=== PATIENT | female | born 1970 | race Caucasian/White ===

== ENCOUNTER 2021-03-31 08:16 | Day surgery (SDC) | payer OTHER ==
[~2021-03-31] VITALS: Ht 162.6 cm; Wt 61.4 kg
[2021-03-31] MEDS ORDERED: VENTOLIN HFA18 GM INH (08:39)
[2021-03-31] MEDS ORDERED: AMBIEN5 MG PO (08:40)
--- NOTE | 2021-03-31 09:55 | NUR ---
03/31/21 0955 Iman Crawford 0951- PT TO PACU IN LL POSITION. EYES OPEN. RESPONDS TO QUESTIONS APPROPRIATELY. DROWSY. BREATHING EASY AND UNLABORED. SPO2 >95% ON 2 L O2 VIA NC. PT DENIES PAIN OR NAUSEA. FALLS BACK TO SLEEP EASILY.
--- NOTE | 2021-03-31 11:31 | NUR ---
1130 PAIN PILLS GIVEN PT EATING JELLO AND POPCICLES, TOLERATES WELL, HER IS WITH HER AT THE BEDSIDE.
--- NOTE | 2021-03-31 16:33 | OR ---
[facility] [address], [place] [address] Signed DATE OF OPERATION: 03/31/2021 SURGEON: Altaf Saldana MD PREOPERATIVE DIAGNOSIS: Screening. POSTOPERATIVE DIAGNOSES: 1. 4 mm polyp at 55 cm. 2. 4 mm polyp at 25 cm. 3. Minimal sigmoid diverticulosis. 4. Minimal internal hemorrhoids. PROCEDURE: Colonoscopy with hot biopsy. ESTIMATED BLOOD LOSS: None. INDICATIONS: Fabiola is a 50-year-old female, asked to see me for her initial screening colonoscopy. She has no lower GI complaints. There is no family history of colon cancer or polyps. In the office, I gave her a pamphlet on colonoscopy. She understands the nature of the test. There is risk including, but not limited to gas bloating, crampy abdominal pain, bleeding, perforation requiring surgery, and missed diagnosis. She also understands the need for IV conscious sedation. She had expressed understanding and wished to proceed. PROCEDURE NOTE: Fabiola was taken into our endoscopy suite and placed in the left lateral decubitus position. She was given IV sedation with 6 mg of Versed and 125 mcg of fentanyl. A digital rectal exam was performed and this was unremarkable. The adult colonoscope was introduced and advanced all around into the cecum under direct visualization of camera without difficulty. Her prep was quite excellent. We could easily see the appendiceal orifice and the ileocecal valve. The scope was slowly withdrawn. We took pictures throughout for photodocumentation. Two tiny polyps were taken out of the colon as described above. She also has just a few diverticula in the sigmoid colon. They were small in size, few in number, and scattered about. The rectum itself was unremarkable. Upon retroflexion of scope, she has very small minimal internal hemorrhoid columns. After this, the gas was suctioned out and the colonoscope removed. Fabiola tolerated procedure quite well. Electronically Signed By: ALTAF SALDANA MD 03/31/21 1633 PATIENT NAME: FABIOLA BURKS OPERATIVE REPORT DATE OF : 70 REPORT #: [id number] PHYSICIAN: ALTAF SALDANA MD PCP: ARVIN SPANGLRE REPORT IS CONFIDENTIAL AND NOT TO BE RELEASED WITHOUT AUTHORIZATION [address] [address] Signed RECOMMENDATIONS: I will see Fabiola back in my office in 7 to 14 days to review her results. Altaf Saldana MD ALB/MODL /[id number] cc: MD Arvin Guzman PA Copies: ALTAF SALDANA MD ~ Electronically Signed By: ALTAF SALDANA MD 03/31/21 1633 PATIENT NAME: FABIOLA BURKS OPERATIVE REPORT DATE OF : 70 REPORT #: [id number] PHYSICIAN: ALTAF SALDANA MD PCP: ARVIN SPANGLER PAC REPORT IS CONFIDENTIAL AND NOT TO BE RELEASED WITHOUT AUTHORIZATION
== END 2021-03-31 10:21 | disposition home or self-care (01) ==
LOC: OPS 08:16 → DS 08:16 → OPS 10:21
PROVIDERS: ATTEND Colon & Rectal Surgery
PROC: 0DBK8ZX Excision of Ascending Colon, Via Natural or Artificial Opening Endoscopic, Diagnostic (ICD-10-PCS; principal; 2021-03-31 09:15)
DX: Z12.11 Encounter for screening for malignant neoplasm of colon (principal); K57.30 Diverticulosis of large intestine without perforation or abscess without bleeding; K64.8 Other hemorrhoids; K63.5 Polyp of colon; J45.909 Unspecified asthma, uncomplicated
CPT/HCPCS: 84703; 99153; G0500; J2250; J3010; J7121